=== PATIENT | female | born 1985 | race African-American/Black ===

== ENCOUNTER 2017-11-15 18:56 | Emergency (ER) | payer SELFPAY ==
[~2017-11-15] VITALS: Ht 162.6 cm; Wt 59.0 kg
[~2017-11-15 18:56] MED LIST: NONE REPORTED
[2017-11-15] MEDS ORDERED: HYDROCODONE/ACETAMINOPHEN 5/325MG TABLET PO ONE (20:45)
[2017-11-15 23:30] VITALS: BP 110/61
== END 2017-11-15 23:30 | disposition home or self-care (01) ==
LOC: ER 19:07
DX: S93.692A Other sprain of left foot, initial encounter (principal); S83.8X2A Sprain of other specified parts of left knee, initial encounter; S60.212A Contusion of left wrist, initial encounter; F17.200 Nicotine dependence, unspecified, uncomplicated; W18.39XA Other fall on same level, initial encounter; Y93.89 Activity, other specified; Y99.8 Other external cause status; Y92.89 Other specified places as the place of occurrence of the external cause
CPT/HCPCS: 73110; 73130; 73562; 73630; 99284